=== PATIENT | male | born 1950 | race African-American/Black ===

== ENCOUNTER 2017-12-30 10:48 | Inpatient (IN) | payer MEDICARE, MEDICAID ==
[~2017-12-30] VITALS: Ht 182.8 cm; Wt 63.6 kg
--- NOTE | ~2017-12-30 | PR ---
[place], [place] PROGRESS NOTE NAME: KEDAR DUNN JR UNIT #: [id number] ROOM: 405 DOCTOR: DERIAN MARTINEZ MD BIRTHDATE: [birth year] DOS: 12/31/2017 CARDIOLOGY PROGRESS NOTE. SUBJECTIVE: The patient was seen in the Cardiology Department immediately prior to his stress test today, 12/31/2017. Overnight, he has felt well. A D-dimer was obtained and was equivocally abnormal. Therefore, we did do a CT angiogram of the chest to look for pulmonary emboli. Happily, the study was unremarkable. Serial troponins have been unremarkable as well. PHYSICAL EXAMINATION: VITAL SIGNS: Today, his pulse is 88 and regular, blood pressure is 135/82, he is afebrile. He weighs 63.6 kg and has a body mass index of 19. NECK: Supple. He has no jugular distention. Carotids are full. He has no bruits. LUNGS: Respirations are unlabored. His chest is clear. HEART: Has a regular rhythm. He has a fourth heart sound, but no third heart sound or murmur. The PMI is not displaced. ABDOMEN: Benign. EXTREMITIES: Showed no edema. Peripheral pulses are easily palpated bilaterally. IMPRESSION: 1. Atypical chest pain, no evidence for acute myocardial infarction. 2. Untreated hypertension. 3. History of aplastic anemia, status post bone marrow transplantation over 30 years ago. PLAN: We will proceed with an exercise myocardial perfusion study. Further recommendations will depend upon the results of the stress test, but thus far, he shows no signs of acute coronary ischemia or coronary artery disease. I thank the hospitalist physicians for asking our advice regarding his care. [place], [place] PROGRESS NOTE NAME: SHAUN KEDAR LOUIS UNIT #: [id number] ROOM: 405 DOCTOR: DERIAN MARTINEZ MD BIRTHDATE: [birth year] DERIAN MARTINEZ MD CM:PNTRANS [id number] DERIAN MARTINEZ MD 12/31/17 1115 interface
--- NOTE | ~2017-12-30 | CON ---
[place], [place] REPORT OF CONSULTATION NAME: KEDAR DUNN JR UNIT #: [id number] ROOM: 405 DOCTOR: DERIAN MARTINEZ MD BIRTHDATE: [birth year] DOS: 12/30/2017 REASON FOR CONSULTATION: Chest pain. HISTORY OF PRESENT ILLNESS: The patient is a 67-year-old man who has no previous history of heart disease. He does have risk factors of cigarette abuse and hypertension. He is not currently seeing any physicians and his blood pressure is not controlled. This morning he was getting ready for confucianist when he suddenly had a sharp pain in his left side that radiated to his left anterior chest. He states that it hit him 2 or 3 times and then left him with a heavy ache in his chest, which lasted several minutes and then resolved. He did note that it hurt to breathe and also that his chest was sore to touch. Symptoms improved, but after confucianist they recurred. His became aware of the pain and insisted that he come to the Emergency Room. In the Emergency Room, he was given nitroglycerin and the pains resolved. He now feels well, although he states that if he presses on his ribs, he can still elicit some pain. The patient does note that there is mold in his house and that he does sneeze on a daily basis. He states that his sneezes are very violent and may last several minutes. He wondered if he may have bruised a rib by sneezing hard. PAST MEDICAL HISTORY: Includes 1. Long-term and ongoing cigarette abuse. 2. Hypertension, which currently is untreated. 3. Hyperlipidemia. 4. History of aplastic anemia, treated with a bone marrow transplant in 1980. FAMILY HISTORY: Positive for his father dying in his 60s of Alzheimer's disease. His mother had diabetes, but of old age at 89. MEDICATIONS: Prior to admission are none. ALLERGIES: The patient has no known drug allergies. REVIEW OF SYSTEMS: The patient denies diplopia or loss of vision. He denies focal weakness. He denies lightheadedness or syncope. He denies fevers, chills, sweats or recent weight change. He does have a chronic "smoker's cough." He does sneeze "violently" on a daily basis. He denies nausea or vomiting. He denies hemoptysis or hematemesis. He denies any recent unexplained weight gain or loss. He denies any change in bowel or bladder habits and has not had any blood in his stools or urine. He denies bleeding from any other site. He denies any peripheral edema. He does walk on a daily basis. He denies any skin rashes. He has not had heat or cold intolerance and denies polydipsia or polyuria. Remainder of the review of systems is negative except as noted above. SOCIAL HISTORY: The patient is and lives with his . He is a [place] and was exposed to ____ at that time. The patient states that he did have problems with drug dependence shortly after his discharge, but has gotten clean. He does continue to smoke cigarettes. [place], [place] REPORT OF CONSULTATION NAME: KEDAR DUNN JR UNIT #: [id number] ROOM: 405 DOCTOR: DERIAN MARTINEZ MD BIRTHDATE: [birth year] PHYSICAL EXAMINATION: GENERAL: The patient is a well-nourished [place] man who is awake, alert and oriented. VITAL SIGNS: Pulse is 98 and regular, blood pressure is 135/75. He is afebrile. He weighs 63.6 kg and has a body mass index of 19. HEENT: Normocephalic and atraumatic. Extraocular muscles are intact. Sclerae are clear. Pupils equal, round and react to light. The oral mucosa is moist. Tongue is midline. NECK: Supple. He has no jugular distention. Carotids are full. I heard no bruits. He had no neck or supraclavicular masses and no thyromegaly. LUNGS: Respirations are unlabored. He has decreased breath sounds at the bases, but no wheezes or rales. He has no presacral edema and no chest wall tenderness. CARDIOVASCULAR: His heart has a regular rhythm. He has a fourth heart sound, but no third heart sound. He has no murmurs. The PMI is not displaced. There is no precordial heave, lift or thrill. ABDOMEN: Soft and normally active without masses, organomegaly or bruits. EXTREMITIES: Showed no edema. Peripheral pulses are palpable in the feet. LABORATORY DATA: I reviewed his electrocardiogram, which showed sinus rhythm and poor precordial R-wave progression with nonspecific T-wave flattening. There were no acute ST or T-wave changes noted. Hemoglobin is 15.5, white count 5800, platelet count 208,000. Sodium 139, potassium 4.0, BUN 15, creatinine 1.17. Troponin has been negative x 2. IMPRESSION: 1. Atypical chest pain. Thus far, the patient does not have any objective findings to suggest an acute coronary syndrome. His chest was sore to touch, reproducing many of his symptoms. His pains were pleuritic at their onset. I am concerned that this could represent a pulmonary embolism, even though he is not sedentary. Certainly, coronary artery disease is also in the consideration and will be evaluated. 2. Untreated hypertension. 3. History of aplastic anemia, status post bone marrow transplant over 30 years ago. The patient has normal blood count at present. PLAN: We will get a D-dimer today. If that is normal, then no other workup for pulmonary embolism will be entertained. Assuming his troponins remain normal, we will plan on an exercise myocardial perfusion study within the next 24 hours. Further recommendations will depend upon the results of the stress test. He certainly should have a primary physician to follow him as an outpatient, should continue to treat his blood pressure after discharge. He was advised to quit smoking. I thank the hospitalist physicians for asking our advice regarding his care. [place], [place] REPORT OF CONSULTATION NAME: KEDAR DUNN JR UNIT #: [id number] ROOM: 405 DOCTOR: DERIAN MARTINEZ MD BIRTHDATE: [birth year] DERIAN MARTINEZ MD CM:CONSTR:REPORT OF CONSULTATION [id number] 12/30/17 [id number] interface
[~2017-12-30 10:48] MED LIST: DARVOCET N 1001 TAB PO; DAYPRO600 M1 PO; MEDROL DOSEPAK4 MG PO; NO DAILY MEDS; ROBAXIN750 MG PO; TRAMADOL HCL50 MG PO; VICODIN 5/500 505 MG PO; VICODIN ES 7501 TAB PO
[2017-12-30 10:58] VITALS: BP 149/99
[2017-12-30 11:03] LABS: BASO % 0.7 % (0.0-1.0); EOS # 0.2 10*3/uL (0.0-0.4); EOS % 3.3 % (1.0-4.0); HEMATOCRIT 48.2 % (42.0-52.0); HEMOGLOBIN 15.5 g/dl (14.0-18.0); LYMPH # 2.6 10*3/uL (1.3-4.4); LYMPH % 44.8 % (27.0-41.0); MEAN CELL VOLUME 84.7 fl (80.0-94.0); MEAN CORPUSCULAR HGB 27.2 pg (27.0-31.0); MEAN CORPUSCULAR HGB CONC 32.2 g/dl (33.0-37.0); MEAN PLATELET VOLUME 8.8 fl (9.6-12.3); MONO # 0.7 10*3/uL (0.1-1.0); MONO % 11.7 % (3.0-9.0); NEUT # 2.3 10*3/uL (2.3-7.9); NEUT % 39.5 % (47.0-73.0); PLATELET COUNT AUTOMATED 208 10*3/uL (130-400); RED BLOOD COUNT 5.69 10*6/uL (4.50-5.90); RED CELL DISTRI WIDTH 15.4 % (0-14.5); WHITE BLOOD COUNT 5.8 10*3/uL (4.8-10.8)
[2017-12-30 11:17] LABS: ACT PARTIAL THROMBO TIME 25.7 SECONDS (20.8-31.5)
[2017-12-30 11:24] LABS: ALBUMIN 3.9 gm/dl (3.1-4.5); BUN 15 mg/dl (7-24); CHLORIDE 107 mmol/L (98-107); CREATININE 1.17 mg/dL (0.70-1.30); SGOT/AST 21 IU/L (3-35); SGPT/ALT 17 U/L (12-78); SODIUM 139 mmol/L (136-145); TOTAL PROTEIN 7.6 gm/dL (6.4-8.2)
[2017-12-30 11:25] LABS: ALKALINE PHOSPHATASE 101 U/L (45-117)
[2017-12-30 11:27] LABS: TROPONIN I < 0.015 ng/ml (<0.045)
[2017-12-30 12:00] VITALS: BP 140/90
[2017-12-30 16:00] VITALS: BP 135/75
[2017-12-30 20:00] VITALS: BP 135/78
[2017-12-31] VITALS: BP 130/85
[2017-12-31 07:03] LABS: BASO # 0.1 10*3/uL (0.0-0.1); BASO % 0.8 % (0.0-1.0); EOS # 0.3 10*3/uL (0.0-0.4); EOS % 3.9 % (1.0-4.0); HEMATOCRIT 47.9 % (42.0-52.0); HEMOGLOBIN 16.1 g/dl (14.0-18.0); LYMPH # 2.3 10*3/uL (1.3-4.4); LYMPH % 29.7 % (27.0-41.0); MEAN CELL VOLUME 83.2 fl (80.0-94.0); MEAN CORPUSCULAR HGB CONC 33.6 g/dl (33.0-37.0); MEAN PLATELET VOLUME 9.3 fl (9.6-12.3); MONO # 0.9 10*3/uL (0.1-1.0); MONO % 11.6 % (3.0-9.0); NEUT # 4.2 10*3/uL (2.3-7.9); NEUT % 53.7 % (47.0-73.0); PLATELET COUNT AUTOMATED 208 10*3/uL (130-400); RED BLOOD COUNT 5.76 10*6/uL (4.50-5.90); RED CELL DISTRI WIDTH 15.4 % (0-14.5); WHITE BLOOD COUNT 7.9 10*3/uL (4.8-10.8)
[2017-12-31 07:25] LABS: ALBUMIN 3.6 gm/dl (3.1-4.5); ALKALINE PHOSPHATASE 82 U/L (45-117); BUN 13 mg/dl (7-24); CHLORIDE 108 mmol/L (98-107); CHOLESTEROL 250 mg/dL (<200); CREATININE 1.05 mg/dL (0.70-1.30); HDL CHOLESTEROL 49 mg/dl (40-60); LDL CHOLESTEROL 171 mg/dL (9-159); PHOSPHOROUS 2.4 mg/dL (2.5-4.9); POTASSIUM 3.8 mmol/L (3.5-5.1); SGOT/AST 19 IU/L (3-35); SGPT/ALT 17 U/L (12-78); SODIUM 139 mmol/L (136-145); TOTAL PROTEIN 7.3 gm/dL (6.4-8.2); TRIGLYCERIDES 149 mg/dl (<150); VLDL CHOLESTEROL 30 mg/dL (6-40)
[2017-12-31 08:00] VITALS: BP 135/82
[2017-12-31 08:14] LABS: VITAMIN D, 25-HYDROXY 10.2 ng/mL (30-100)
[2017-12-31 12:00] VITALS: BP 152/89
[2017-12-31] MEDS ORDERED: ASPIRIN ADULT L81 M2 PO (13:31)
[2017-12-31] MEDS ORDERED: AMLODIPINE BESY10 MG PO (13:31)
[2017-12-31] MEDS ORDERED: VITAMIN D-32000 UNI1 PO (14:58)
[2017-12-31 16:00] VITALS: BP 118/76
== END 2017-12-31 17:15 | disposition home or self-care (01) | DRG 392 ==
LOC: ED 10:48 → 4E 11:24 → EDHOLD 11:24 → 4E 11:38
PROVIDERS: Emergency Medicine; Internal Medicine
PROC: 4A02XM4 Measurement of Cardiac Total Activity, External Approach (ICD-10-PCS; principal; 2017-12-31)
DX: K21.9 Gastro-esophageal reflux disease without esophagitis (principal); Z94.81 Bone marrow transplant status; E83.39 Other disorders of phosphorus metabolism; E83.41 Hypermagnesemia; R07.89 Other chest pain; E78.5 Hyperlipidemia, unspecified; F12.90 Cannabis use, unspecified, uncomplicated; I10 Essential (primary) hypertension; M06.9 Rheumatoid arthritis, unspecified; F17.200 Nicotine dependence, unspecified, uncomplicated; Z87.311 Personal history of (healed) other pathological fracture; Z81.8 Family history of other mental and behavioral disorders; Z71.6 Tobacco abuse counseling; Z91.09 Other allergy status, other than to drugs and biological substances

== ENCOUNTER → 2018-01-08 | Outpatient (CLI) | payer MEDICARE, MEDICAID ==
[~2018-01-08] MED LIST changes: +AMLODIPINE BESY10 MG PO; +ASPIRIN ADULT L81 M2 PO; +VITAMIN D-32000 UNI1 PO
== END | disposition home or self-care (01) ==
LOC: RESCLI 03:51
DX: M06.9 Rheumatoid arthritis, unspecified (principal); E78.5 Hyperlipidemia, unspecified; E55.9 Vitamin D deficiency, unspecified; F12.90 Cannabis use, unspecified, uncomplicated; F17.200 Nicotine dependence, unspecified, uncomplicated; Z71.6 Tobacco abuse counseling

== ENCOUNTER 2021-07-29 11:24 | Emergency (ER) | payer OTHER ==
[~2021-07-29] VITALS: Ht 180.3 cm; Wt 65.8 kg
== END 2021-07-29 13:48 | disposition left against medical advice (07) ==
LOC: ED 11:24
DX: M54.2 Cervicalgia (principal); M25.511 Pain in right shoulder; Z53.21 Procedure and treatment not carried out due to patient leaving prior to being seen by health care provider

== ENCOUNTER 2022-01-15 10:10 | Emergency (ER) | payer OTHER, MEDICAID ==
[~2022-01-15] VITALS: Wt 59.0 kg
[2022-01-15 13:08] LABS: BASO # 0.1 10*3/uL (0.0-0.1); BASO % 1.2 % (0.0-1.0); EOS # 0.3 10*3/uL (0.0-0.4); EOS % 5.2 % (1.0-4.0); HEMATOCRIT 38.9 % (42.0-52.0); LYMPH # 2.1 10*3/uL (1.3-4.4); LYMPH % 42.1 % (27.0-41.0); MEAN CELL VOLUME 84.2 fl (80.0-94.0); MEAN CORPUSCULAR HGB 27.1 pg (27.0-31.0); MEAN CORPUSCULAR HGB CONC 32.1 g/dl (33.0-37.0); MEAN PLATELET VOLUME 8.7 fl (9.6-12.3); MONO # 0.5 10*3/uL (0.1-1.0); MONO % 9.3 % (3.0-9.0); NEUT # 2.1 10*3/uL (2.3-7.9); NEUT % 42.2 % (47.0-73.0); PLATELET COUNT AUTOMATED 212 10*3/uL (130-400); RED BLOOD COUNT 4.62 10*6/uL (4.50-5.90); RED CELL DISTRI WIDTH 15.9 % (0-14.5)
[2022-01-15 13:29] LABS: ALKALINE PHOSPHATASE 222 U/L (45-117); BUN 11 mg/dl (7-24); CHLORIDE 109 mmol/L (98-107); CREATININE 0.88 mg/dL (0.70-1.30); POTASSIUM 4.5 mmol/L (3.5-5.1); SGOT/AST 23 IU/L (3-35); SGPT/ALT 15 U/L (12-78); SODIUM 141 mmol/L (136-145); TOTAL PROTEIN 7.5 gm/dL (6.4-8.2)
== END 2022-01-15 13:02 | disposition home or self-care (01) ==
LOC: ED 10:10
PROVIDERS: Emergency Medicine
DX: M54.42 Lumbago with sciatica, left side (principal); F17.200 Nicotine dependence, unspecified, uncomplicated; Z98.890 Other specified postprocedural states

== ENCOUNTER → 2022-01-17 | Outpatient (CLI) | payer OTHER, MEDICAID ==
[2022-01-17 12:47] LABS: BASO # 0.1 10*3/uL (0.0-0.1); EOS # 0.1 10*3/uL (0.0-0.4); EOS % 2.2 % (1.0-4.0); HEMATOCRIT 42.9 % (42.0-52.0); LYMPH # 2.1 10*3/uL (1.3-4.4); LYMPH % 35.5 % (27.0-41.0); MEAN CORPUSCULAR HGB CONC 32.2 g/dl (33.0-37.0); MEAN PLATELET VOLUME 8.7 fl (9.6-12.3); MONO # 0.4 10*3/uL (0.1-1.0); MONO % 7.1 % (3.0-9.0); NEUT # 3.2 10*3/uL (2.3-7.9); PLATELET COUNT AUTOMATED 226 10*3/uL (130-400); RED BLOOD COUNT 5.11 10*6/uL (4.50-5.90); WHITE BLOOD COUNT 5.9 10*3/uL (4.8-10.8)
[2022-01-17 13:04] LABS: ALKALINE PHOSPHATASE 221 U/L (45-117); BUN 9 mg/dl (7-24); CHLORIDE 107 mmol/L (98-107); CHOLESTEROL 218 mg/dL (<200); CREATININE 0.95 mg/dL (0.70-1.30); LDL CHOLESTEROL 141 mg/dL (9-159); POTASSIUM 3.9 mmol/L (3.5-5.1); SGOT/AST 23 IU/L (3-35); SGPT/ALT 18 U/L (12-78); SODIUM 138 mmol/L (136-145); TOTAL PROTEIN 8.1 gm/dL (6.4-8.2); TRIGLYCERIDES 69 mg/dl (<150)
[2022-01-17 13:05] LABS: FREE T4 1.09 ng/dl (0.76-1.46)
== END | disposition home or self-care (01) ==
LOC: LAB 12:27
PROVIDERS: ATTEND Internal Medicine
DX: J44.9 Chronic obstructive pulmonary disease, unspecified (principal); F32.2 Major depressive disorder, single episode, severe without psychotic features; R05.9 Cough, unspecified; Z12.5 Encounter for screening for malignant neoplasm of prostate; Z79.899 Other long term (current) drug therapy

== ENCOUNTER → 2022-01-27 | Outpatient (CLI) | payer OTHER, MEDICAID ==
[2022-01-27 12:57] LABS: BASO # 0.1 10*3/uL (0.0-0.1); EOS # 0.3 10*3/uL (0.0-0.4); EOS % 5.7 % (1.0-4.0); HEMATOCRIT 39.1 % (42.0-52.0); LYMPH # 1.8 10*3/uL (1.3-4.4); MEAN CELL VOLUME 84.8 fl (80.0-94.0); MEAN CORPUSCULAR HGB 27.1 pg (27.0-31.0); MEAN PLATELET VOLUME 8.9 fl (9.6-12.3); MONO # 0.4 10*3/uL (0.1-1.0); MONO % 8.8 % (3.0-9.0); NEUT # 2.3 10*3/uL (2.3-7.9); NEUT % 47.3 % (47.0-73.0); PLATELET COUNT AUTOMATED 251 10*3/uL (130-400); RED BLOOD COUNT 4.61 10*6/uL (4.50-5.90); RED CELL DISTRI WIDTH 15.9 % (0-14.5); WHITE BLOOD COUNT 4.9 10*3/uL (4.8-10.8)
[2022-01-27 12:58] LABS: BILIRUBIN Negative (Negative); CLARITY Clear (Clear); COLOR Dark Yellow (Yellow); GLUCOSE Negative (Negative); KETONE Trace (Negative); NITRITE Negative (Negative)
[2022-01-27 13:09] LABS: BLOOD Trace-Lysed (Negative); LEUKO ESTERASE Negative (Negative)
[2022-01-27 13:10] LABS: MUCOUS 2+
[2022-01-27 13:18] LABS: ALKALINE PHOSPHATASE 180 U/L (45-117); BUN 10 mg/dl (7-24); CHLORIDE 106 mmol/L (98-107); CREATININE 0.97 mg/dL (0.70-1.30); SGOT/AST 17 IU/L (3-35); SGPT/ALT 16 U/L (12-78); SODIUM 139 mmol/L (136-145); TOTAL PROTEIN 7.1 gm/dL (6.4-8.2)
== END | disposition home or self-care (01) ==
LOC: LAB 12:21
PROVIDERS: ATTEND Urology
DX: R97.20 Elevated prostate specific antigen [PSA] (principal); Z12.5 Encounter for screening for malignant neoplasm of prostate; R85.618 Other abnormal cytological findings on specimens from anus; N40.2 Nodular prostate without lower urinary tract symptoms; Z79.899 Other long term (current) drug therapy